=== PATIENT | male | born 1985 | race Caucasian/White ===

== ENCOUNTER 2017-07-21 09:16 | Emergency (ER) | payer SELFPAY ==
[2017-07-21 10:07] VITALS: BP 121/77
[2017-07-21] MEDS ORDERED: TRIPLE ANTIBIOTIC TP ONE ×2 (12:32→12:48)
[2017-07-21] MEDS ORDERED: BOOSTRIX IM ONE (12:46)
--- NOTE | 2017-07-21 12:50 | Emergency Department Report ---
ED Laceration HPI - HPI Chief Complaint: Extremity Injury, Upper Stated Complaint: LEFT FINGER LACERATION Time Seen by Provider: 07/21/17 11:19 Occurred When: Yesterday (last night 10pm) Tetanus Status: Not up to Date Laceration Symptoms: No Foreign Body Sensation, No Numbness, No Weakness, No Pain Other History: 31-year-old male past medical history none presents with complaint of laceration to top of left index finger. Patient states that while he was cutting chicken last night he accidentally sliced the top of his left index finger knuckle. Unaware of tetanus status, no current bleeding, visible 1.5 cm laceration adjacent to the left MCP index finger area ED Review of Systems ROS: Stated complaint: LEFT FINGER LACERATION Other details as noted in HPI Constitutional: denies: chills, fever Eyes: denies: eye pain, eye discharge, vision change ENT: denies: ear pain, throat pain Respiratory: denies: cough, shortness of breath, wheezing Cardiovascular: denies: chest pain, palpitations Endocrine: no symptoms reported Gastrointestinal: denies: abdominal pain, nausea, diarrhea Genitourinary: denies: urgency, dysuria Musculoskeletal: denies: back pain, joint swelling, arthralgia Skin: denies: rash, lesions Neurological: denies: headache, weakness, paresthesias Psychiatric: denies: anxiety, depression Hematological/Lymphatic: denies: easy bleeding, easy bruising ED Past Medical Hx - Past Medical History Previous Medical History?: No - Surgical History Past Surgical History?: No - Social History Smoking Status: Former Smoker Substance Use Type: None - Medications Home Medications: Home Medications Medication Instructions Recorded Confirmed Last Taken Type Cephalexin [Keflex] 500 mg PO Q12HR #10 cap 07/21/17 Unknown Rx Ibuprofen [Motrin] 600 mg PO Q8H PRN #25 tablet 07/21/17 Unknown Rx Laceration Physical Exam - Exam General: Vital signs noted. No distress. Alert and acting appropriately. Wound Length (cm): 2 Full Body Front + Back: 1 - Small 2 cm horizontal laceration between PIP and MCP top of left index finger minimal bleeding wound is relatively shallow Laceration Exam: Yes Normal Distal CMS (distal capillary refill less than 1 second index finger left side), No Foreign Body, No Exposed Tendon, Vessel, or Nerve, No Tendon Injury ED Course Vital Signs 07/21/17 10:03 Temperature 98.3 F Pulse Rate 54 L Respiratory 18 Rate Blood Pressure 121/77 O2 Sat by Pulse 99 Oximetry - Laceration /Wound Repair Left Distal Finger Wound Location: upper extremity (top of left index finger) Wound Length (cm): 2 Wound's Depth, Shape: superficial, linear Irrigated w/ Saline (ccs): 1,000 Betadine Prep?: Yes Anesthesia: Lidocaine w/ Epi Volume Anesthetic (ccs): 2 Suture Size/Type: 5:0, nylon Number of Sutures: 2 Sterile Dressing Applied?: Yes (Triple Antibiotic and wrapped with Kerlix gauze) Progress: Good wound closure achieved, wound irrigated, 2 nylon sutures were placed using 5-0 thread ED Medical Decision Making - Medical Decision Making A/P: Laceration left index finger 1-sutures to be removed in 7 days 2-tetanus updated today 3-Motrin when necessary, triple antibiotic ointment, short course Keflex as patient was handling raw chicken at the time 4- pt advised to return to the ED for any fevers chills pus drainage erythema at site of laceration 5- finger has normal neurovascular exam, range of motion MCP PIP and DIP fully intact capillary refill less than 1 second all fingers left hand. No other injury sustained. Patient educated on wound care and I educated him on any signs and symptoms of infection. Critical care attestation.: If time is entered above; I have spent that time in minutes in the direct care of this critically ill patient, excluding procedure time. ED Disposition Clinical Impression: Finger laceration Qualifiers: Encounter type: initial encounter Finger: index finger Damage to nail status: without damage Foreign body presence: without foreign body Laterality: left Qualified Code(s): S61.211A - Laceration without foreign body of left index finger without damage to nail, initial encounter Disposition: TO HOME OR SELFCARE Is pt being admited?: No Does the pt Need Aspirin: No Condition: Stable Instructions: Finger Laceration (ED), Suture Care (ED) Additional Instructions: Sutures to be removed in 7 days. Puntos se tienen que quitar en 7 dominguez Prescriptions: Cephalexin [Keflex] 500 mg PO Q12HR #10 cap Ibuprofen [Motrin] 600 mg PO Q8H PRN #25 tablet PRN Reason: Pain Referrals: PRIMARY CARE, [Primary Care Provider] - 3-5 Days [facility] [Outside] - 3-5 Days Forms: Work/School Release Form(ED) Time of Disposition: 12:50 Print Language: GEORGIAN
== END 2017-07-21 13:00 | disposition home or self-care (01) ==
LOC: ED 09:16
DX: S61.211A Laceration without foreign body of left index finger without damage to nail, initial encounter (principal); Z87.891 Personal history of nicotine dependence; W26.0XXA Contact with knife, initial encounter; Y93.9 Activity, unspecified; Y92.89 Other specified places as the place of occurrence of the external cause; Y99.9 Unspecified external cause status
CPT/HCPCS: 90471; A6250